=== PATIENT | female | born 1980 | race Caucasian/White ===

== ENCOUNTER 2019-02-08 18:53 | Emergency (ER) | payer OTHER ==
[~2019-02-08] VITALS: Ht 160 cm; Wt 58.6 kg
[2019-02-08] MEDS ORDERED: LYRICA 25MG CAP25 MG PO (19:22)
[2019-02-08] MEDS ORDERED: PREMARIN 0.3MG0.3 MG (19:23)
[2019-02-08] MEDS ORDERED: AUGMENTIN 875-1 EAC1 PO (20:10)
[2019-02-08 20:26] VITALS: BP 134/67
== END 2019-02-08 20:26 | disposition home or self-care (01) ==
LOC: ED 18:53
DX: S51.851A Open bite of right forearm, initial encounter (principal); Z23 Encounter for immunization; Z88.2 Allergy status to sulfonamides; Z88.1 Allergy status to other antibiotic agents; F17.210 Nicotine dependence, cigarettes, uncomplicated; W54.0XXA Bitten by dog, initial encounter; Y92.69 Other specified industrial and construction area as the place of occurrence of the external cause; Y99.0 Civilian activity done for income or pay
CPT/HCPCS: 90715